=== PATIENT | female | born 1940 | race Caucasian/White ===

== ENCOUNTER 2019-09-03 20:41 | Emergency (ER) | payer MEDICARE, OTHER ==
[2019-09-03] MEDS: Bacitracin Oint 1 GM U/D Packet TOP ONE (21:00)
[2019-09-03] MEDS: Diphtheria,Pertussis(Acell),Tetanus Vaccine 0.5 ML SDV IM ONE (21:01)
[2019-09-03] MEDS: Lidocaine 1% 30 ML SDV INJECT ONE (21:01)
--- NOTE | 2019-09-10 13:51 | EDM.PDOC ---
ED HPI GENERAL MEDICAL PROBLEM - General Chief Complaint: Laceration Stated Complaint: right leg laceration Time Seen by Provider: 09/03/19 20:55 Source of Information: Reports: Patient History Limitations: Reports: No Limitations - History of Present Illness INITIAL COMMENTS - FREE TEXT/NARRATIVE: ED ambulatory, with laceration right lower leg, reports working in garden and cut on metal decorative item. - Related Data Allergies Allergy/AdvReac Type Severity Reaction Status Date / Time atorvastatin calcium Allergy Muscle Verified 09/07/19 16:11 [From Lipitor] Aches celecoxib Allergy Cannot Verified 09/07/19 16:11 Remember gentamicin [Gentamicin] Allergy Cannot Verified 09/07/19 16:11 Remember metoprolol Allergy Cannot Verified 09/07/19 16:11 Remember pravastatin Allergy Muscle Verified 09/07/19 16:11 Aches Home Meds: Home Meds Aspirin [Ecotrin] 81 mg PO DAILY 05/22/13 [History] Atenolol [Tenormin] 12.5 mg PO DAILY 05/22/13 [History] Cholecalciferol (Vitamin D3) [Vitamin D] 1,000 unit PO DAILY 05/22/13 [History] Estradiol [Estrace] 1 mg PO ASDIRECTED 05/22/13 [History] Ibuprofen [Advil] 200 mg PO Q6HR PRN 05/22/13 [History] Levothyroxine Sodium [Synthroid] 75 mcg PO DAILY 05/22/13 [History] NIFEdipine [Nifedipine ER] 90 mg PO DAILY 09/03/19 [History] Past Medical History - Past Health History Medical/Surgical History: Denies Medical/Surgical History Cardiovascular History: Reports: High Cholesterol, Hypertension Endocrine/Metabolic History: Reports: Hypothyroidism Social & Family History - Tobacco Use Smoking Status *Q: Never Smoker Second Hand Smoke Exposure: No ED ROS GENERAL - Review of Systems Review Of Systems: Comprehensive ROS is negative, except as noted in HPI. ED EXAM, SKIN/RASH Exam: See Below Exam Limited By: No Limitations General Appearance: Alert, Mild Distress Eye Exam: Bilateral Eye: EOMI Ears: Hearing Grossly Normal Nose: Normal Inspection Throat/Mouth: Normal Voice Respiratory/Chest: No Respiratory Distress Cardiovascular: Normal Peripheral Pulses Extremities: Other (laceration right lateral calf) Neurological: Alert, Oriented, Normal Cognition Psychiatric: Normal Affect Location, Skin: Lower Extremity, Right (5.5cm with 1 cm angled lower edge scant bleeding) Associated features: Tenderness ED SKIN PROCEDURES - Laceration/Wound Repair Right Lower Lateral Leg Appearance: Subcutaneous Anesthetic Type: Local Local Anesthesia - Lidocaine (Xylocaine): 1% Plain Local Anesthetic Volume: 3cc Skin Prep: Chlorhexidine (Hibiciens), Saline Saline Irrigation (cc's): 100 Exploration/Debridement/Repair: Wound Explored, Minimal Debridement Closed with: Sutures Lac/Wound length In cm: 5.5 Suture Size: 4-0 # of Sutures: 8 Suture Type: Prolene, Interrupted Suture Size: 4-0 # of Sutures: 4 Repaired with: Vicryl Sterile Dressing Applied: Nurse Tetanus Status Addressed: Yes Complications: No Course - Vital Signs Last Recorded V/S: Last Vital Signs Temp 98.2 F 09/03/19 20:42 Pulse 72 09/03/19 20:42 Resp 16 09/03/19 20:42 BP 137/68 09/03/19 20:42 Pulse Ox 97 09/03/19 20:42 - Orders/Labs/Meds Meds: Medications Discontinued Medications Generic Name Dose Route Start Last Admin Trade Name Lilliam PRN Reason Stop Dose Admin Bacitracin 1 dose 09/03/19 20:54 09/03/19 21:00 Bacitracin Oint 1 Gm TOP 09/03/19 20:55 1 dose ONETIME ONE Administration Diphtheria/Tetanus/Acell Pertussis 0.5 ml 09/03/19 20:54 09/03/19 21:01 Adacel IM 09/03/19 20:55 0.5 ml .ONCE ONE Administration Lidocaine HCl 30 ml 09/03/19 20:54 09/03/19 21:01 Xylocaine-Mpf 1% INJECT 09/03/19 20:55 30 ml ONETIME ONE Administration Departure - Departure Time of Disposition: 22:30 Disposition: Home, Self-Care 01 Condition: Good Clinical Impression: Laceration - Discharge Information *PRESCRIPTION DRUG MONITORING PROGRAM REVIEWED*: No *COPY OF PRESCRIPTION DRUG MONITORING REPORT IN PATIENT JENNIFER: No Instructions: Sutured Wound Care Referrals: PCP,None [Primary Care Provider] - Forms: ED Department Discharge Additional Instructions: Sutures out in 2 weeks. Follow up with clinic on Sunday for wound re-check. May use Tylenol or ibuprofen for pain. Keep wound clean and dry. Apply bacitracin to sutures, thin film twice daily. May leave open to air after 24 hours and shower, cover if potential to get area dirty Sepsis Event Note - Evaluation Sepsis Screening Result: No Definite Risk
== END 2019-09-03 22:30 | disposition home or self-care (01) ==
LOC: DL.ED 20:41
DX: S81.811A Laceration without foreign body, right lower leg, initial encounter (principal); I10 Essential (primary) hypertension; E03.9 Hypothyroidism, unspecified; Z23 Encounter for immunization; Z79.82 Long term (current) use of aspirin; Z88.8 Allergy status to other drugs, medicaments and biological substances; Z88.1 Allergy status to other antibiotic agents; Z79.899 Other long term (current) drug therapy; W26.9XXA Contact with unspecified sharp object(s), initial encounter
CPT/HCPCS: 12002; 90471; 90715; 99282; J2001

== ENCOUNTER 2019-09-07 16:01 | Emergency (ER) | payer MEDICARE, OTHER ==
--- NOTE | 2019-09-07 16:26 | EDM.PDOC ---
ED HPI GENERAL MEDICAL PROBLEM - General Chief Complaint: Skin Complaint Stated Complaint: RIGHT LEG POSSIBLY INFECTED Time Seen by Provider: 09/07/19 16:25 Source of Information: Reports: Patient, Old Records, RN, RN Notes Reviewed History Limitations: Reports: No Limitations - History of Present Illness INITIAL COMMENTS - FREE TEXT/NARRATIVE: Pt had sutures to the right lower leg earlier in the week (on 09/03/19) and she feels that the wound may be infected. She has called several times to phone nurse and she cannot really see the area. She c/o there is a pink-red drainage from the wound, and she does have edema to the leg distal to the site of injury. Onset: Gradual Onset Date: 09/03/19 Duration: Constant, Getting Worse Location: Reports: Lower Extremity, Right Quality: Reports: Ache Severity: Moderate Improves with: Reports: None Worsens with: Reports: Movement Associated Symptoms: Reports: No Other Symptoms - Related Data Allergies Allergy/AdvReac Type Severity Reaction Status Date / Time atorvastatin calcium Allergy Muscle Verified 09/07/19 16:11 [From Lipitor] Aches celecoxib Allergy Cannot Verified 09/07/19 16:11 Remember gentamicin [Gentamicin] Allergy Cannot Verified 09/07/19 16:11 Remember metoprolol Allergy Cannot Verified 09/07/19 16:11 Remember pravastatin Allergy Muscle Verified 09/07/19 16:11 Aches Home Meds: Home Meds Aspirin [Ecotrin] 81 mg PO DAILY 05/22/13 [History] Atenolol [Tenormin] 12.5 mg PO DAILY 05/22/13 [History] Cholecalciferol (Vitamin D3) [Vitamin D] 1,000 unit PO DAILY 05/22/13 [History] Estradiol [Estrace] 1 mg PO ASDIRECTED 05/22/13 [History] Ibuprofen [Advil] 200 mg PO Q6HR PRN 05/22/13 [History] Levothyroxine Sodium [Synthroid] 75 mcg PO DAILY 05/22/13 [History] NIFEdipine [Nifedipine ER] 90 mg PO DAILY 09/03/19 [History] Past Medical History - Past Health History Medical/Surgical History: Denies Medical/Surgical History Cardiovascular History: Reports: High Cholesterol, Hypertension Endocrine/Metabolic History: Reports: Hypothyroidism Social & Family History - Tobacco Use Smoking Status *Q: Never Smoker - Recreational Drug Use Recreational Drug Use: No - Living Situation & Occupation Occupation: Retired ED ROS GENERAL - Review of Systems Review Of Systems: Comprehensive ROS is negative, except as noted in HPI. ED EXAM, SKIN/RASH Exam: See Below Exam Limited By: No Limitations General Appearance: Alert, WD/WN, No Apparent Distress Respiratory/Chest: No Respiratory Distress Cardiovascular: Normal Peripheral Pulses Extremities: Normal Range of Motion, No Pedal Edema, Normal Capillary Refill, Leg Pain (Rt lower leg), Increased Warmth (Mild with mild/faint erythema Rt lower leg, no visible drainage, suture intact). No: Joint Swelling, Elliott's Sign Neurological: Alert, Oriented, No Motor/Sensory Deficits Psychiatric: Normal Mood Course - Vital Signs Last Recorded V/S: Last Vital Signs Temp 98.4 F 09/07/19 16:08 Pulse 78 09/07/19 16:08 Resp 14 09/07/19 16:08 BP 127/68 09/07/19 16:08 Pulse Ox 98 09/07/19 16:08 - Orders/Labs/Meds Labs: Laboratory Tests 09/07/19 Range/Units 16:41 WBC 9.4 (5.0-10.0) 10^3/uL RBC 4.22 (4.2-5.4) 10^6/uL Hgb 12.2 (12.0-16.0) g/dL Hct 37.2 (37.0-47.0) % MCV 88.2 (80-100) fL MCH 28.9 (27.0-34.0) pg MCHC 32.8 L (33.0-35.0) g/dL Plt Count 385 (150-450) 10^3/uL Neut % (Auto) 72.5 (42.2-75.2) % Lymph % (Auto) 19.6 L (20.5-50.1) % [place] % (Auto) 6.0 (2-8) % Eos % (Auto) 1.5 (1.0-3.0) % Baso % (Auto) 0.4 (0.0-1.0) % Meds: Medications Discontinued Medications Generic Name Dose Route Start Last Admin Trade Name Freq PRN Reason Stop Dose Admin Cephalexin 500 mg 09/07/19 16:34 09/07/19 16:45 Keflex PO 09/07/19 16:35 500 mg ONETIME ONE Administration Mupirocin 15 gm 09/07/19 16:34 09/07/19 16:46 Bactroban Oint TOP 09/07/19 16:35 1 applic ONETIME ONE Administration Departure - Departure Time of Disposition: 16:47 Disposition: Home, Self-Care 01 Condition: Good Clinical Impression: Laceration of right lower leg with infection Qualifiers: Encounter type: initial encounter Qualified Code(s): S81.811A - Laceration without foreign body, right lower leg, initial encounter - Discharge Information *PRESCRIPTION DRUG MONITORING PROGRAM REVIEWED*: Not Applicable *COPY OF PRESCRIPTION DRUG MONITORING REPORT IN PATIENT JENNIFER: Not Applicable Instructions: Wound Infection Forms: ED Department Discharge Additional Instructions: Rx: Cephalexin 500mg Apply Bactroban (Mupirocin) Ointment to area of infection three times a day for 5 days. Follow up in clinic in 2 to 3 days for recheck. Sepsis Event Note - Evaluation Sepsis Screening Result: No Definite Risk - Focused Exam Vital Signs: Vital Signs Temp Pulse Resp BP Pulse Ox 09/07/19 16:08 98.4 F 78 14 127/68 98 Date Exam was Performed: 09/07/19 Time Exam was Performed: 16:50
[2019-09-07] MEDS ORDERED: Cephalexin 500 MG Cap PO ONE (16:34)
[2019-09-07] MEDS ORDERED: Mupirocin Oint 22 GM Tube TOP ONE (16:34)
== END 2019-09-07 16:56 | disposition home or self-care (01) ==
LOC: DL.ED 16:01
DX: S81.811A Laceration without foreign body, right lower leg, initial encounter (principal); E03.9 Hypothyroidism, unspecified; I10 Essential (primary) hypertension; Z79.82 Long term (current) use of aspirin; Z79.899 Other long term (current) drug therapy; Z88.1 Allergy status to other antibiotic agents; Z88.8 Allergy status to other drugs, medicaments and biological substances; X58.XXXA Exposure to other specified factors, initial encounter
CPT/HCPCS: 36415; 85025; 99283; A9270

== ENCOUNTER 2021-03-06 07:09 | Emergency (ER) | payer MEDICARE, OTHER ==
--- NOTE | 2021-03-06 07:34 | EDM.PDOC ---
ED HPI GENERAL MEDICAL PROBLEM - General Chief Complaint: Upper Extremity Injury/Pain Stated Complaint: SHOULDER PAIN Time Seen by Provider: 03/06/21 07:28 Source of Information: Reports: Patient, RN, RN Notes Reviewed History Limitations: Reports: No Limitations - History of Present Illness INITIAL COMMENTS - FREE TEXT/NARRATIVE: Juanjo in a 80 y/o female who presents to the ED via personal vehicle with complaints of left shoulder pain. The patient reports her pain was present when she woke this morning, it did not wake her from sleep. She characterizes the pain as an ache to the posterior left inferior shoulder joint which is exacerbated by abduction. She denies recent or history of injury to the joint, including falls. She denies loss of sensory function to the distal extremity. She denies experiencing similar pain. She has applied Bengay to the joint with mild alleviation in symptoms; she has taken no medications for her pain. Shoulder Pain Score (Numeric/FACES): 4 - Related Data Allergies Allergy/AdvReac Type Severity Reaction Status Date / Time atorvastatin calcium Allergy Muscle Verified 03/06/21 07:34 [From Lipitor] Aches celecoxib Allergy Cannot Verified 03/06/21 07:34 Remember gentamicin [Gentamicin] Allergy Cannot Verified 03/06/21 07:34 Remember metoprolol Allergy Cannot Verified 03/06/21 07:34 Remember pravastatin Allergy Muscle Verified 03/06/21 07:34 Aches Home Meds: Home Meds Aspirin [Ecotrin] 81 mg PO DAILY 05/22/13 [History] Atenolol [Tenormin] 12.5 mg PO DAILY 05/22/13 [History] Cholecalciferol (Vitamin D3) [Vitamin D] 1,000 unit PO DAILY 05/22/13 [History] Estradiol [Estrace] 1 mg PO ASDIRECTED 05/22/13 [History] Ibuprofen [Advil] 200 mg PO Q6HR PRN 05/22/13 [History] Levothyroxine Sodium [Synthroid] 75 mcg PO DAILY 05/22/13 [History] NIFEdipine [Nifedipine ER] 90 mg PO DAILY 09/03/19 [History] Past Medical History - Past Health History Medical/Surgical History: Denies Medical/Surgical History Cardiovascular History: Reports: High Cholesterol, Hypertension Endocrine/Metabolic History: Reports: Hypothyroidism Social & Family History - Living Situation & Occupation Occupation: Retired Review of Systems - Review of Systems Review Of Systems: Comprehensive ROS is negative, except as noted in HPI. ED EXAM, GENERAL - Physical Exam Exam: See Below Exam Limited By: No Limitations General Appearance: Alert, No Apparent Distress Eye Exam: Bilateral Eye: EOMI, Normal Inspection, PERRL (3mm) Ears: Normal External Exam, Hearing Grossly Normal Nose: Normal Inspection Throat/Mouth: Normal Inspection, Normal Oropharynx, Normal Voice, No Airway Compromise Head: Atraumatic, Normocephalic Neck: Normal Inspection, Full Range of Motion Respiratory/Chest: No Respiratory Distress, Lungs Clear, Normal Breath Sounds, No Accessory Muscle Use, Chest Non-Tender Cardiovascular: Normal Peripheral Pulses, Regular Rate, Rhythm, No Gallop, No Murmur, No Rub Peripheral Pulses: 2+: Radial (L), Radial (R) GI/Abdominal: Normal Bowel Sounds, Soft, Non-Tender (Female) Exam: Deferred Rectal (Female) Exam: Deferred Back Exam: Paraspinal Tenderness (To left upper back, muscle knots noted). No: Muscle Spasm Extremities: No Pedal Edema, Normal Capillary Refill, Arm Pain (To left posterior inferior shoulder/back), Limited Range of Motion (To left shoulder). No: Joint Swelling, Increased Warmth, Mottled, Pallor, Redness Neurological: Alert, Oriented, CN II-XII Intact, Normal Cognition, Normal Gait, No Motor/Sensory Deficits Psychiatric: Normal Affect, Normal Mood Skin Exam: Warm, Dry, Intact, Normal Color, No Rash. No: Cyanosis, Jaundice, Mottled, Pallor #1 Interpretation EKG Date: 03/06/21 Time: 07:26 Rhythm: NSR Rate (Beats/Min): 73 [place]: Normal P-Wave: Present QRS: Normal ST-T: Normal QT: Normal AR/PQ Interval: 0.232 Comparison: NA - No Prior EKG EKG Interpretation Comments: NSR with 1st Degree AVB; No evidence of acute myocardial ischemia Course - Vital Signs Last Recorded V/S: Last Vital Signs Temp 98.1 F 03/06/21 07:30 Pulse 79 03/06/21 07:30 Resp 16 03/06/21 07:30 BP 161/99 H 03/06/21 07:30 Pulse Ox 98 03/06/21 07:30 - Orders/Labs/Meds Orders: Active Orders 24 hr Category Date Time Status Shoulder Comp Rt [CR] Urgent Exams 03/06/21 07:42 Stop Req Labs: Laboratory Tests 03/06/21 03/06/21 Range/Units 07:29 07:29 WBC 10.8 H (5.0-10.0) 10^3/uL RBC 4.65 (4.2-5.4) 10^6/uL Hgb 13.5 (12.0-16.0) g/dL Hct 41.9 (37.0-47.0) % MCV 90.1 (80-100) fL MCH 29.0 (27.0-34.0) pg MCHC 32.2 L (33.0-35.0) g/dL Plt Count 335 (150-450) 10^3/uL Neut % (Auto) 76.3 H (42.2-75.2) % Lymph % (Auto) 14.6 L (20.5-50.1) % [place] % (Auto) 7.8 (2-8) % Eos % (Auto) 1.0 (1.0-3.0) % Baso % (Auto) 0.3 (0.0-1.0) % Troponin I High Sens 7 (<=51) pg/mL Meds: Medications Discontinued Medications Generic Name Dose Route Start Last Admin Trade Name Lilliam PRN Reason Stop Dose Admin Acetaminophen 1,000 mg 03/06/21 07:42 03/06/21 08:08 Acetaminophen 500 Mg Tab PO 03/06/21 07:43 1,000 mg ONETIME ONE Administration - Radiology Interpretation Free Text/Narrative:: [facility] Final Radiology Report Call: [phone] assistance Online chat: [email or web address] Name: JUANJO LÓPEZ Age: 80Years F Date: 03/06/2021 SSN: -- : [id number] Study: CR SHOULDER COMP LT Requesting Physician: Ava Babin Images: 2 Addl Studies: Provided Clinical History: Acute pain to posterior inferior joint Contrast: Contrast Medium: Contrast Amount: Contrast Method: CONFIDENTIALITY STATEMENT This report is intended only for use by the referring physician, and only in accordance with law. If you received this in error, call [phone]. Page 1 of 1 PROCEDURE INFORMATION: Exam: XR Left Shoulder Exam date and time: 03/06/2021 7:49 AM Age: 80 years old Clinical indication: Pain; Shoulder; Left; Additional info: Acute pain to post erior inferior joint TECHNIQUE: Imaging protocol: XR Left shoulder. Views: 2 or more views. COMPARISON: No relevant prior studies available. FINDINGS: Bones/joints: No acute fracture is identified. The acromioclavicular joint is not significantly widened. It demonstrates mild arthrosis. Cannot confirm glenohumeral joint alignment without a transscapular or axillary view. There is mild productive change along the greater tuberosity. Degenerative changes involve the spine. There is no osseous erosion or cortical destruction. Soft tissues: The soft tissues appear grossly unremarkable. IMPRESSION: Degenerative changes as described. Thank you for allowing us to participate in the care of your patient. Dictated and Authenticated by: Darin Luke MD 03/06/2021 8:07 AM Central Time ([place] & [place]) - Re-Assessments/Exams Free Text/Narrative Re-Assessment/Exam: 03/06/21 Given abrupt onset of pain, EKG performed. Shoulder xray obtained. Findings of examination and imaging reviewed with patient. Supportive cares for shoulder pain discussed. Patient instructed to follow up with primary care provider in 2-3 days regarding todays visit. Red flag signs and symptoms which would warrant immediate reevaluation reviewed. Patient verbalized understanding and agreement with the plan of care. Departure - Departure Time of Disposition: 08:18 Disposition: Home, Self-Care 01 Condition: Good Clinical Impression: Arthrosis of left shoulder Left shoulder pain Qualifiers: Chronicity: acute Qualified Code(s): M25.512 - Pain in left shoulder - Discharge Information *PRESCRIPTION DRUG MONITORING PROGRAM REVIEWED*: Not Applicable *COPY OF PRESCRIPTION DRUG MONITORING REPORT IN PATIENT JENNIFER: Not Applicable Instructions: Shoulder Pain, [id number], Joint Pain, [id number] Forms: ED Department Discharge Additional Instructions: 1.) You may take acetaminophen (Tylenol) 650-1000mg every six hours, as pain persists. You may also take ibuprofen (Motrin/Advil) 400mg every six hours, as persists. You may stagger these medications so you are taking a dose of medicine every three hours. 2.) You may apply warm compresses to the area of discomfort; 20 minutes, every hour. 3.) Continue with application of BioFreeze or Bengay, per manufactures instructions. 4.) Follow up with your primary care provider in 2-3 days should pain persist or worsen despite supportive cares as you may require a physical therapy evaluation. Sepsis Event Note (ED) - Focused Exam Vital Signs: Vital Signs Temp Pulse Resp BP Pulse Ox 03/06/21 07:30 98.1 F 79 16 161/99 H 98 - My Orders Last 24 Hours: My Active Orders 03/06/21 07:42 Shoulder Comp Rt [CR] Urgent - Assessment/Plan Last 24 Hours: My Active Orders 03/06/21 07:42 Shoulder Comp Rt [CR] Urgent
[2021-03-06] MEDS ORDERED: Acetaminophen 500 MG Tab PO ONE (07:42)
--- NOTE | 2021-03-06 08:07 | CR ---
PROCEDURE INFORMATION: Exam: XR Left Shoulder Exam date and time: 03/06/2021 7:49 AM Age: 80 years old Clinical indication: Pain; Shoulder; Left; Additional info: Acute pain to posterior inferior joint TECHNIQUE: Imaging protocol: XR Left shoulder. Views: 2 or more views. COMPARISON: No relevant prior studies available. FINDINGS: Bones/joints: No acute fracture is identified. The acromioclavicular joint is not significantly widened. It demonstrates mild arthrosis. Cannot confirm glenohumeral joint alignment without a transscapular or axillary view. There is mild productive change along the greater tuberosity. Degenerative changes involve the spine. There is no osseous erosion or cortical destruction. Soft tissues: The soft tissues appear grossly unremarkable. IMPRESSION: Degenerative changes as described.
== END 2021-03-06 08:42 | disposition home or self-care (01) ==
LOC: DL.ED 07:09
DX: M19.012 Primary osteoarthritis, left shoulder (principal); I44.0 Atrioventricular block, first degree; I10 Essential (primary) hypertension; E03.9 Hypothyroidism, unspecified; Z88.8 Allergy status to other drugs, medicaments and biological substances; Z88.1 Allergy status to other antibiotic agents; Z79.82 Long term (current) use of aspirin; Z79.899 Other long term (current) drug therapy
CPT/HCPCS: 36415; 73030; 84484; 85025; 93005; 99284; A9270

== ENCOUNTER → 2023-02-21 | Day surgery (SDC) | payer MEDICARE, OTHER ==
[~2023-02-21] MED LIST: Dextrose 5%-0.45% NaCl 1,000 ML IV SCH; Midazolam 1 MG/ML 2 ML SDV ONE; fentaNYL 100 MCG/2 ML SDV ONE
[2023-02-21] MEDS: Dextrose 5%-0.45% NaCl 1,000 ML IV SCH (05:42)
[2023-02-21] MEDS: fentaNYL 100 MCG/2 ML SDV IV ONE ×2 (06:32→06:33)
[2023-02-21] MEDS: Midazolam 1 MG/ML 2 ML SDV IV ONE ×6 (06:34→06:47)
== END | disposition home or self-care (01) ==
LOC: DL.ENDO 05:08
PROVIDERS: ATTEND Internal Medicine Gastroenterology
DX: K57.30 Diverticulosis of large intestine without perforation or abscess without bleeding (principal); K59.09 Other constipation; F41.9 Anxiety disorder, unspecified; E78.5 Hyperlipidemia, unspecified; I10 Essential (primary) hypertension; E03.9 Hypothyroidism, unspecified; I73.9 Peripheral vascular disease, unspecified; F41.1 Generalized anxiety disorder; Z90.710 Acquired absence of both cervix and uterus; Z98.890 Other specified postprocedural states; Z88.8 Allergy status to other drugs, medicaments and biological substances
CPT/HCPCS: J2250; J3010; J7042